=== PATIENT | male | born 1980 | race Caucasian/White ===

== ENCOUNTER 2023-05-01 12:24 | Outpatient (CLI) | payer BC ==
[2023-05-01] MEDS ORDERED: Magnevist 469MG/ML 20 ML VIAL ONE (14:52)
== END 2023-05-01 12:25 | disposition home or self-care (01) ==
LOC: CSHMRI 12:24
PROVIDERS: ATTEND Psychiatry & Neurology Neurology
DX: G62.9 Polyneuropathy, unspecified (principal); M43.17 Spondylolisthesis, lumbosacral region; M48.07 Spinal stenosis, lumbosacral region
CPT/HCPCS: 72158; A9579